=== PATIENT | male | born 1990 | race Caucasian/White ===

== ENCOUNTER 2018-07-19 09:05 | Emergency (ER) | payer OTHER ==
[2018-07-19] MEDS: IBUPROFEN 800 MG TAB PO (09:38)
[2018-07-19] MEDS: HYDROCODONE/APAP (5/325) TAB PO (10:58)
== END 2018-07-19 11:18 | disposition home or self-care (01) ==
LOC: FTE 09:05
DX: S62.336A Displaced fracture of neck of fifth metacarpal bone, right hand, initial encounter for closed fracture (principal); X58.XXXA Exposure to other specified factors, initial encounter; Y92.9 Unspecified place or not applicable
CPT/HCPCS: 29125; 73110-RT; 73130-RT; 99283-25